=== PATIENT | female | born 1960 | race Caucasian/White ===

== ENCOUNTER → 2016-10-26 | Outpatient (CLI) | payer MEDICARE, OTHER ==
[2015-11-15 05:32] VITALS: BP 126/63
[~2016-10-26] MED LIST: ALPR0.5T PO; ASPI325T4 PO; ASPI81TA2 PO; ATOR40TA PO; CHOL500050 PO; CLOP75TA PO; CRESTOR40 MG PO; CYCL10TA2 PO; DULO30CA2 PO; FOLI1TAB16 PO; ISOS60TA2 PO; LIDO700A4 TP; LOSA25TA4 PO; METH10TA2 PO; METO25TA9 PO; MULT1TAB52 PO; NIAC1000 PO; NITR0.4T SL; OMEG1CAP6 PO; PARO40TA45 PO; PROAIR HFA8.5 GM INH; ZOLP10TA4 PO
--- NOTE | 2016-10-26 15:11 | RAD ---
Chest, 2 views, 10/26/2016: History: Shortness of breath Comparison is made to a study from 11/15/2015. There as been a previous median sternotomy. The heart size and pulmonary vascularity are normal. There is a unchanged dense nodule in the left lung compatible with a joint granuloma. No acute infiltrates are seen. There is no evidence of pleural fluid. IMPRESSION: No acute cardiopulmonary abnormality is detected.
== END | disposition home or self-care (01) ==
LOC: RAD 12:58
PROVIDERS: ATTEND Internal Medicine Pulmonary Disease
DX: R06.02 Shortness of breath (principal); R91.1 Solitary pulmonary nodule
CPT/HCPCS: 71020

== ENCOUNTER → 2016-11-05 | Outpatient (CLI) | payer MEDICARE, OTHER ==
[2015-11-15 05:32] VITALS: BP 126/63
--- NOTE | 2016-11-05 16:42 | RAD ---
CT scan of the chest without contrast 11/05/2016 Clinical history: Smoking history. Technique: Unenhanced, contiguous, 5 mm axial sections were obtained through the chest and upper abdomen. One or more of the following individualized dose reduction techniques were utilized for this study: 1. Automated exposure control. 2. Adjustment of the mA and/or kV according to patient size. 3. Use of iterative reconstruction technique. Findings: Comparison study is dated 12/10/2011. Surgical changes are seen consistent with a CABG procedure. Scattered atherosclerotic plaque formation is seen involving the thoracic aorta and its branches. The thoracic aorta tapers normally. The heart is normal in size. Extensive coronary artery calcifications are noted. Calcified left hilar and mediastinal lymph nodes are seen. A 1.9 cm noncalcified mediastinal lymph node is seen anterior to the lakhwinder, unchanged. A 3.9 cm calcified mass is seen within the left lower lobe which has not significantly changed. This could represent a hamartoma or granuloma. No pulmonary infiltrate is seen. No pleural effusion or pneumothorax is noted. No noncalcified pulmonary nodule or mass is seen. Images through the upper abdomen demonstrate small calcified gallstones within the gallbladder Atherosclerotic calcification of the abdominal aorta is seen. Degenerative changes are seen involving the thoracic spine. Impression: No acute abnormality is seen.
== END | disposition home or self-care (01) ==
LOC: CT 15:30
PROVIDERS: ATTEND Internal Medicine Pulmonary Disease
DX: Z12.9 Encounter for screening for malignant neoplasm, site unspecified (principal); F17.200 Nicotine dependence, unspecified, uncomplicated; M47.894 Other spondylosis, thoracic region
CPT/HCPCS: 71250

== ENCOUNTER → 2017-02-12 | Outpatient (CLI) | payer MEDICARE ==
[2015-11-15 05:32] VITALS: BP 126/63
[~2017-02-12] MED LIST changes: +ASPI-630 PO; -ASPI325T4 PO; +ASPI325T8 PO; -ASPI81TA2 PO; -PARO40TA45 PO; +PARO40TA61 PO
--- NOTE | 2017-02-12 15:55 | KCIC ---
LUMBAR SPINE MIN 4V History: Chronic low back pain increasing after fall 5-6 months ago Comparison: None. Findings: 5 views of the lumbar spine are submitted. Lumbar vertebral body stature is maintained. There is diffuse atherosclerotic calcification of the abdominal aorta. There is moderate degenerative disc disease at L5-S1. There is negligible posterior subluxation L2 relative to L3. There is multilevel facet degenerative change greater inferiorly of the lumbar spine. Impression: 1. There is multilevel facet degenerative change greater inferiorly of the lumbar spine. There is moderate degenerative disc disease L5-S1. Electronically signed by: Matthew Yost MD (02/12/2017 3:51 PM)
== END | disposition home or self-care (01) ==
LOC: KCIC 12:57
PROVIDERS: ATTEND Family Medicine
DX: M51.36 Other intervertebral disc degeneration, lumbar region (principal); M51.37 Other intervertebral disc degeneration, lumbosacral region
CPT/HCPCS: 72110

== ENCOUNTER → 2017-05-23 | Outpatient (CLI) | payer MEDICARE ==
[2015-11-15 05:32] VITALS: BP 126/63
[~2017-05-23] MED LIST changes: +METO-239 PO; -METO25TA9 PO
--- NOTE | 2017-05-23 12:20 | KCIC ---
Examination: CT right hip without contrast HISTORY: History of fall, right hip pain COMPARISON: None available TECHNIQUE: Axial CT images of the right hip were performed without contrast. Coronal and sagittal reformats are performed. Exposure: One or more of the following individualized dose reduction techniques were utilized for this examination: 1. Automated exposure control 2. Adjustment of the mA and/or kV according to patient size 3. Use of iterative reconstruction technique. Findings: The right femoral head is within the acetabulum. In the region of the superior acetabulum anteriorly, there are small comminuted bone fragments identified could be a age indeterminate fracture fragments or fractured anterior osteophytes in the superior acetabulum. The muscle bulk grossly appears unremarkable. No evidence of fracture of the right femoral head femoral neck region. Small osteophyte formation identified in the femoral head region. There is mild joint space loss identified in the right hip joint. IMPRESSION: 1. Small comminuted bone fragments identified in the superior acetabulum anteriorly could be age indeterminate fracture fragments or fractured anterior osteophytes. Correlate clinically with point tenderness. If there is history of recent injury , MRI may be useful. Electronically signed by: Lemuel Lamas MD (05/23/2017 12:16 PM) [id number]
== END | disposition home or self-care (01) ==
LOC: KCIC CT 10:54
PROVIDERS: ATTEND Family Medicine
DX: M25.551 Pain in right hip (principal); Z91.81 History of falling
CPT/HCPCS: 73700

== ENCOUNTER → 2017-12-30 | Outpatient (CLI) | payer MEDICARE | END | disposition home or self-care (01) | LOC: KCIC CT 10:27 | DX: R91.1 Solitary pulmonary nodule (principal); D71 Functional disorders of polymorphonuclear neutrophils; J84.10 Pulmonary fibrosis, unspecified; I31.3 Pericardial effusion (noninflammatory); K76.0 Fatty (change of) liver, not elsewhere classified; I10 Essential (primary) hypertension; Z87.891 Personal history of nicotine dependence | CPT/HCPCS: 71250 ==

== ENCOUNTER → 2018-05-13 | Outpatient (CLI) | payer MEDICARE ==
[2015-11-15 05:32] VITALS: BP 126/63
[~2018-05-13] MED LIST changes: -LOSA25TA4 PO; +LOSA25TA5 PO
--- NOTE | 2018-05-13 17:07 | RAD ---
Examination: 3 views of the right ankle HISTORY: History of right ankle pain COMPARISON: None available. FINDINGS: The alignment of the ankle mortise grossly appears unremarkable.There is no acute fracture or dislocation identified. Mild soft tissue swelling identified about the ankle joint. IMPRESSION: 1. No acute osseous findings. 2. Mild soft tissue swelling identified about the ankle joint. Electronically signed by: Lemuel Lamas MD (05/13/2018 5:04 PM) [id number]
== END | disposition home or self-care (01) ==
LOC: RAD 14:21
PROVIDERS: ATTEND Family Medicine
DX: M25.471 Effusion, right ankle (principal); J44.9 Chronic obstructive pulmonary disease, unspecified; I25.10 Atherosclerotic heart disease of native coronary artery without angina pectoris; K21.9 Gastro-esophageal reflux disease without esophagitis; I25.2 Old myocardial infarction; Z90.710 Acquired absence of both cervix and uterus; Z85.828 Personal history of other malignant neoplasm of skin; Z87.891 Personal history of nicotine dependence; Z88.8 Allergy status to other drugs, medicaments and biological substances; Z82.49 Family history of ischemic heart disease and other diseases of the circulatory system
CPT/HCPCS: 73610

== ENCOUNTER 2018-08-26 21:04 | Emergency (ER) | payer MEDICARE ==
[~2018-08-26] VITALS: Ht 157.5 cm; Wt 72.6 kg
[~2018-08-26 21:04] MED LIST changes: +ALBU2.5V8 INH; -LOSA25TA5 PO; +LOSA25TA54 PO; -PROAIR HFA8.5 GM INH
--- NOTE | 2018-08-26 23:42 | PHYS DOC ---
Past Medical History Past Medical History: Anxiety, Arthritis, CAD, COPD, Depression, Fibromyalgia, GERD, Hypertension, PA, Other Additional Past Medical Histor: ULCERS, BACK PAIN, SKIN CANCER Past Surgical History: Coronary Bypass Surgery, , Hysterectomy, Other Additional Past Surgical Histo: STENTS, CARPAL TUNNEL, Alcohol Use: None Drug Use: None Adult General Chief Complaint Chief Complaint: MECHANICAL FALL HPI HPI Patient is a 58 year old female who presents with left chest discomfort after being knocked down by a dog 3 days ago. Increased pain with deep breaths. Unable to lay flat due to the discomfort which also makes shortness of breath worse. No relief with her home methadone which she is on for her chronic pain and fibromyalgia issues. No syncope, no loss of consciousness. No head injury. No bruising. Some nausea, no vomiting, no radiation of the discomfort. [] Review of Systems Review of Systems Constitutional: Denies fever or chills [] Eyes: Denies change in visual acuity, redness, or eye pain [] HENT: Denies nasal congestion or sore throat [] Respiratory: Denies cough or shortness of breath [] Cardiovascular: No additional information not addressed in HPI [] GI: Denies abdominal pain, nausea, vomiting, bloody stools or diarrhea [] : Denies dysuria or hematuria [] Musculoskeletal: Denies back pain or joint pain [] Integument: Denies rash or skin lesions [] Neurologic: Denies headache, focal weakness or sensory changes [] Endocrine: Denies polyuria or polydipsia [] All other systems were reviewed and found to be within normal limits, except as documented in this note. Current Medications Current Medications Current Medications Medications (Trade) Dose Ordered Sig/Dominick Start Time Stop Time Status Last Admin Dose Admin Albuterol/ Ipratropium (Duoneb) 3 ml 1X ONCE 08/27/18 00:00 08/27/18 00:01 DC 08/27/18 00:15 3 ML Info (CONTRAST GIVEN -- Rx MONITORING) 1 each PRN DAILY PRN 08/27/18 01:45 08/29/18 01:44 Iohexol (Omnipaque 300 Mg/ml) 75 ml 1X ONCE 08/27/18 02:00 08/27/18 02:01 DC 08/27/18 02:21 75 ML Ketorolac Tromethamine (Toradol 30mg Vial) 30 mg 1X ONCE 08/27/18 00:00 08/27/18 00:01 DC 08/27/18 01:09 30 MG Allergies Allergies Allergies Coded Allergies Type Severity Reaction Last Updated Verified bupropion Allergy Intermediate 05/31/14 Yes doxycycline Allergy Intermediate 05/31/14 Yes Uncoded Allergies Type Severity Reaction Last Updated Verified liprocystine Allergy Intermediate 05/31/14 Physical Exam Physical Exam Constitutional: Well developed, well nourished, no acute distress, non-toxic appearance. [] HENT: Normocephalic, atraumatic, bilateral external ears normal, oropharynx moist, no oral exudates, nose normal. [] Eyes: PERRLA, EOMI, conjunctiva normal, no discharge. [] Neck: Normal range of motion, no tenderness, supple, no stridor. [] Cardiovascular:Heart rate regular rhythm, no murmur [] Lungs & Thorax: Bilateral breath sounds clear to auscultation, tenderness to palpation over the left chest at approximately the seventh and eighth rib anterior axillary line region. No crepitus is palpated no bruising is appreciated. [] Abdomen: Bowel sounds normal, soft, no tenderness, no masses, no pulsatile masses. [] Skin: Warm, dry, no erythema, no rash. [] Back: No tenderness, no CVA tenderness. [] Extremities: No tenderness, no cyanosis, no clubbing, ROM intact, no edema. [] Neurologic: Alert and oriented X 3, normal motor function, normal sensory function, no focal deficits noted. [] Psychologic: Affect normal, judgement normal, mood normal. [] Current Patient Data Vital Signs Vital Signs Date Time Temp Pulse Resp B/P (MAP) Pulse Ox O2 Delivery O2 Flow Rate FiO2 08/27/18 01:49 99 Room Air 08/26/18 22:09 97.9 79 18 145/65 (91) 97.9 Lab Values Laboratory Tests Test 08/27/18 00:54 08/27/18 01:00 Urine Collection Type Unknown Urine Color Yellow Urine Clarity Clear Urine pH 6.0 Urine Specific [place] <=1.005 Urine Protein Negative mg/dL (NEG-TRACE) Urine Glucose (UA) Negative mg/dL (NEG) Urine Ketones (Stick) Negative mg/dL (NEG) Urine Blood Small (NEG) Urine Nitrite Negative (NEG) Urine Bilirubin Negative (NEG) Urine Urobilinogen Dipstick 1.0 mg/dL (0.2 mg/dL) Urine Leukocyte Esterase Trace (NEG) Urine RBC Occ /HPF (0-2) Urine WBC 1-4 /HPF (0-4) Urine Squamous Epithelial Cells Occ /LPF Urine Bacteria 0 /HPF (0-FEW) Urine Mucus Slight /LPF White Blood Count 6.3 x10^3/uL (4.0-11.0) Red Blood Count 4.45 x10^6/uL (3.50-5.40) Hemoglobin 13.3 g/dL (12.0-15.5) Hematocrit 38.2 % (36.0-47.0) Mean Corpuscular Volume 86 fL (79-100) Mean Corpuscular Hemoglobin 30 pg (25-35) Mean Corpuscular Hemoglobin Concent 35 g/dL (31-37) Red Cell Distribution Width 14.8 % (11.5-14.5) H Platelet Count 157 x10^3/uL (140-400) Neutrophils (%) (Auto) 73 % (31-73) Lymphocytes (%) (Auto) 19 % (24-48) L Monocytes (%) (Auto) 7 % (0-9) Eosinophils (%) (Auto) 1 % (0-3) Basophils (%) (Auto) 0 % (0-3) Neutrophils # (Auto) 4.6 x10^3uL (1.8-7.7) Lymphocytes # (Auto) 1.2 x10^3/uL (1.0-4.8) Monocytes # (Auto) 0.5 x10^3/uL (0.0-1.1) Eosinophils # (Auto) 0.1 x10^3/uL (0.0-0.7) Basophils # (Auto) 0.0 x10^3/uL (0.0-0.2) Prothrombin Time 13.7 SEC (11.7-14.0) Prothrombin Time INR 1.1 (0.8-1.1) PTT 30 SEC (24-38) Sodium Level 140 mmol/L (136-145) Potassium Level 3.3 mmol/L (3.5-5.1) L Chloride Level 99 mmol/L (98-107) Carbon Dioxide Level 33 mmol/L (21-32) H Anion Gap 8 (6-14) Blood Urea Nitrogen 8 mg/dL (7-20) Creatinine 1.0 mg/dL (0.6-1.0) Estimated GFR (Cockcroft-Gault) 57.1 Glucose Level 144 mg/dL (70-99) H Calcium Level 9.8 mg/dL (8.5-10.1) Lipase 98 U/L (73-393) Laboratory Tests 08/27/18 01:00 Laboratory Tests 08/27/18 01:00 EKG EKG EKG shows a sinus rhythm, rate of 75 bpm, normal axis, no ST elevations, normal QTC, no acute changes when compared with EKG of 11/15/2015[] Radiology/Procedures Radiology/Procedures CT scan of the chest abdomen and pelvis Findings: CT chest findings: A large calcified granuloma is again seen on the left. There is mild atelectasis in the left lower lobe and a trace of adjacent pleural fluid. The lungs otherwise appear clear. There is no evidence of lung contusion or pneumothorax. The central airways show no obstruction. No enlarged lymph nodes are seen. A borderline enlarged right paratracheal node is unchanged. There is suggestion of some edema along the lower left lateral chest wall, although no clear-cut rib fracture is seen. CT abdomen and pelvis findings: The liver and spleen are homogeneous in density and normal in configuration. No adjacent fluid is seen. Both kidneys enhance with contrast and show no evidence of parenchymal injury. The adrenal glands and pancreas appear normal. No free fluid is seen in the abdomen. Images through the pelvis show no abnormality of the distal ureters or bladder. There is no free pelvic fluid. Bone windows show no apparent fracture. IMPRESSION: Small left-sided pleural effusion and adjacent atelectasis. Mild edema of the left lateral chest wall without apparent adjacent rib fracture. No acute findings in the abdomen or pelvis.[] Course & Med Decision Making Course & Med Decision Making Pertinent Labs and Imaging studies reviewed. (See chart for details) ED course: Patient arrived, was placed in bed, tolerated exam well. Patient did get some relief with the medicines administered. After the return of lab and imaging findings these were discussed with the patient who voiced understanding. All questions were answered. Gregory decision making: There is no evidence of hemo-or pneumothorax, no evidence of intractable pain. No evidence of acute coronary syndrome.[] Dragon Disclaimer Dragon Disclaimer This electronic medical record was generated, in whole or in part, using a voice recognition dictation system. Departure Departure Impression: Primary Impression: Chest wall pain Disposition: 01 HOME, SELF-CARE Condition: GOOD Referrals: VINAYAK CHAU MD (PCP) Follow-up in 2 days Patient Instructions: Chest Contusion Additional Instructions: Follow-up with your regular doctor in 2 days. Apply warm compresses to the area for 15 minutes at a time at least 4 times a day. Return to the ER if worsening difficulty breathing or any other concerns. Scripts Meloxicam (MELOXICAM) 7.5 Mg Tablet 7.5 MG PO DAILY, #20 TAB Prov: JUNE ESCALERA DO 08/27/18 JUNE ESCALERA DO Aug 26, 2018 23:42
[2018-08-27] MEDS ORDERED: KETOROLAC 30 MG/ML VIAL. IV ONE
[2018-08-27] MEDS ORDERED: IPRATRPIUM/ALBUTEROL 0.5/2.5MG 3 ML NEBU. NEB ONE
[2018-08-27 01:14] LABS: BASO % 0 % (0-3); EOS # 0.1 x10^3/uL (0.0-0.7); EOS % 1 % (0-3); HEMATOCRIT 38.2 % (36.0-47.0); HEMOGLOBIN 13.3 g/dL (12.0-15.5); LYMPH # 1.2 x10^3/uL (1.0-4.8); LYMPH % 19 % (24-48); MEAN CORPUSCULAR HEMOGLOBIN 30 pg (25-35); MEAN CORPUSCULAR HGB CONC 35 g/dL (31-37); MEAN CORPUSCULAR VOLUME 86 fL (79-100); MONO # 0.5 x10^3/uL (0.0-1.1); MONO % 7 % (0-9); NEUT # 4.6 x10^3uL (1.8-7.7); NEUT % 73 % (31-73); PLATELET COUNT 157 x10^3/uL (140-400); RED BLOOD COUNT 4.45 x10^6/uL (3.50-5.40); RED CELL DISTRIBUTION WIDTH 14.8 % (11.5-14.5); WHITE BLOOD COUNT 6.3 x10^3/uL (4.0-11.0)
[2018-08-27 01:16] LABS: BILIRUBIN,URINE NEGATIVE (NEG); CLARITY,URINE CLEAR; COLOR,URINE YELLOW; NITRITE,URINE NEGATIVE (NEG); PROTEIN,URINE NEGATIVE (NEG-TRACE)
[2018-08-27 01:30] LABS: CALCIUM 9.8 mg/dL (8.5-10.1); GFR 57.1; POTASSIUM 3.3 mmol/L (3.5-5.1)
[2018-08-27 01:32] LABS: PROTHROMBIN TIME PATIENT 13.7 SEC (11.7-14.0)
[2018-08-27 01:36] LABS: BACTERIA,URINE 0 /HPF (0-FEW); RBC,URINE OCC /HPF (0-2); SQUAMOUS EPITHELIAL CELL,UR OCC /LPF
[2018-08-27] MEDS ORDERED: CONTRAST GIVEN. MC PRN (01:45)
--- NOTE | 2018-08-27 01:52 | NUR ---
recieved verbal approval to give a 2nd breathing tx after being paged to come to the ER and give one. ag
[2018-08-27 02:00] VITALS: BP 117/56
[2018-08-27] MEDS ORDERED: IOHEXOL 300 MG/ML 100ML VIAL. IV ONE (02:00)
--- NOTE | 2018-08-27 02:44 | RAD ---
CT CHEST ABD PELVIS W/CONTRAST dated 08/27/2018 2:05 AM Indication:fell 3 days ago, lt rib pain, [id number] 60ml, priors sent Comparison: CT chest of 12/30/[address] abdomen and pelvis of 12/10/2005. Technique: One or more of the following individualized dose reduction techniques were utilized for this examination: 1. Automated exposure control 2. Adjustment of the mA and/or kV according to patient size 3. Use of iterative reconstruction technique Findings: CT chest findings: A large calcified granuloma is again seen on the left. There is mild atelectasis in the left lower lobe and a trace of adjacent pleural fluid. The lungs otherwise appear clear. There is no evidence of lung contusion or pneumothorax. The central airways show no obstruction. No enlarged lymph nodes are seen. A borderline enlarged right paratracheal node is unchanged. There is suggestion of some edema along the lower left lateral chest wall, although no clear-cut rib fracture is seen. CT abdomen and pelvis findings: The liver and spleen are homogeneous in density and normal in configuration. No adjacent fluid is seen. Both kidneys enhance with contrast and show no evidence of parenchymal injury. The adrenal glands and pancreas appear normal. No free fluid is seen in the abdomen. Images through the pelvis show no abnormality of the distal ureters or bladder. There is no free pelvic fluid. Bone windows show no apparent fracture. IMPRESSION: Small left-sided pleural effusion and adjacent atelectasis. Mild edema of the left lateral chest wall without apparent adjacent rib fracture. No acute findings in the abdomen or pelvis. Electronically signed by: Aron Banuelos Jr., MD (08/27/2018 2:40 AM) [facility]
[2018-08-27] MEDS ORDERED: MELO7.5T29 PO (03:12)
--- NOTE | 2018-08-27 06:42 | EKG ---
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 Electronically Signed On 09-03-2018 10:56:02 [employer] by Aron Mclain
== END 2018-08-27 03:24 | disposition home or self-care (01) ==
LOC: ER 21:04
DX: R07.1 Chest pain on breathing (principal); G89.11 Acute pain due to trauma; J98.11 Atelectasis; J90 Pleural effusion, not elsewhere classified; R06.02 Shortness of breath; G89.29 Other chronic pain; J44.9 Chronic obstructive pulmonary disease, unspecified; F32.9 Major depressive disorder, single episode, unspecified; I25.10 Atherosclerotic heart disease of native coronary artery without angina pectoris; I10 Essential (primary) hypertension; F41.9 Anxiety disorder, unspecified; K21.9 Gastro-esophageal reflux disease without esophagitis; Z95.1 Presence of aortocoronary bypass graft; Z90.710 Acquired absence of both cervix and uterus; Z95.5 Presence of coronary angioplasty implant and graft; I25.2 Old myocardial infarction; W18.39XA Other fall on same level, initial encounter; Y93.89 Activity, other specified; Y92.89 Other specified places as the place of occurrence of the external cause; Y99.8 Other external cause status
CPT/HCPCS: 36415; 71260; 74177; 80048; 81001; 83690; 85025; 85610; 85730; 93005; 94640; 96374; 99284; J1885; J7620; Q9967

== ENCOUNTER → 2019-05-18 | Outpatient (CLI) | payer MEDICARE ==
[~2019-05-18] MED LIST changes: +MELO7.5T29 PO; -NITR0.4T SL; +NITR0.4T24 SL
--- NOTE | 2019-05-18 16:15 | KCIC ---
CHEST PA LATERAL History: Weight loss, productive cough for 3 weeks, smoker Comparison: Chest CT August 27, 2018 Findings: 2 views of the chest are submitted. There is again partially calcified mass of the mid to severe left hemithorax. There again has been a median sternotomy. Cardiac silhouette is within normal limits. There is no dependent pleural fluid, lobar infiltrate, pneumothorax. Impression: 1. No acute radiographic abnormality is identified. There is again large partially at least partially lesion of the mid to superior left hemithorax. Electronically signed by: Matthew Yost MD (05/18/2019 4:12 PM) [id number]
== END | disposition home or self-care (01) ==
LOC: KCIC 14:18
PROVIDERS: ATTEND Family Medicine
DX: R91.8 Other nonspecific abnormal finding of lung field (principal); R63.4 Abnormal weight loss; F17.200 Nicotine dependence, unspecified, uncomplicated
CPT/HCPCS: 71046

== ENCOUNTER → 2019-07-16 | Outpatient (CLI) | payer MEDICARE ==
--- NOTE | 2019-07-17 09:56 | KCIC ---
Examination: CERVICAL SPINE 5V History: Fell 6 weeks ago, neck pain, struck the left side of the face Comparison/Correlation: None Findings: Total of 5 images of the cervical spine were obtained. Alignment of cervical spine is normal. Atlantoaxial joint degenerative changes are present. Vertebral body heights are adequate. Disc spaces are adequate. Facet joint degenerative hypertrophy bilaterally is seen. Bony encroachment on the left neural foramina at C4-5 and C5-6 is questioned. Evaluation is limited due to positioning however. No bony destructive finding. Incidental note is made of sternal wires and mediastinal clips which are partially seen. Impression: Facet joint degenerative changes. Possibility of bony encroachment on the left C4-5 and C5-6 neural foramina. Electronically signed by: Robert Felton MD (07/17/2019 9:53 AM) [facility]
--- NOTE | 2019-07-17 09:58 | KCIC ---
Examination: ORBITS COMPLETE 4+V History: Fell 6 weeks ago, struck the left side of face, pain Comparison/Correlation: None Findings: Total of 4 images of the orbits were obtained. This includes a left oblique view. No fluid levels identified involving the paranasal sinuses. Orbits are intact with no fracture identified. Soft tissues are unremarkable. Left zygomatic is grossly unremarkable. Impression: No suspicious process. Consider further imaging if fracture is a persistent concern. Electronically signed by: Robert Felton MD (07/17/2019 9:54 AM) [facility] [place]
== END | disposition home or self-care (01) ==
LOC: KCIC 12:32
PROVIDERS: ATTEND Family Medicine
DX: M47.812 Spondylosis without myelopathy or radiculopathy, cervical region (principal); M89.38 Hypertrophy of bone, other site; W19.XXXA Unspecified fall, initial encounter; Y93.89 Activity, other specified; Y92.89 Other specified places as the place of occurrence of the external cause; Y99.8 Other external cause status
CPT/HCPCS: 70200; 72050

== ENCOUNTER → 2020-01-15 | Outpatient (CLI) | payer MEDICARE ==
[2020-01-15 10:31] LABS: BASO % 1 % (0-3); EOS # 0.1 x10^3/uL (0.0-0.7); EOS % 2 % (0-3); HEMATOCRIT 42.3 % (36.0-47.0); HEMOGLOBIN 13.8 g/dL (12.0-15.5); LYMPH # 1.2 x10^3/uL (1.0-4.8); LYMPH % 22 % (24-48); MEAN CORPUSCULAR HEMOGLOBIN 28 pg (25-35); MEAN CORPUSCULAR HGB CONC 33 g/dL (31-37); MEAN CORPUSCULAR VOLUME 85 fL (79-100); MONO # 0.3 x10^3/uL (0.0-1.1); MONO % 6 % (0-9); NEUT # 3.8 x10^3/uL (1.8-7.7); NEUT % 70 % (31-73); PLATELET COUNT 169 x10^3/uL (140-400); RED BLOOD COUNT 4.97 x10^6/uL (3.50-5.40); RED CELL DISTRIBUTION WIDTH 15.3 % (11.5-14.5); WHITE BLOOD COUNT 5.4 x10^3/uL (4.0-11.0)
[2020-01-15 10:47] LABS: ALBUMIN 3.8 g/dL (3.4-5.0); CALCIUM 9.1 mg/dL (8.5-10.1); CREATININE 1.1 mg/dL (0.6-1.0); POTASSIUM 4.4 mmol/L (3.5-5.1); TOTAL BILIRUBIN 0.5 mg/dL (0.2-1.0); TOTAL PROTEIN 7.7 g/dL (6.4-8.2)
[2020-01-15 10:49] LABS: CHOLESTEROL/HDL RATIO 5.6
== END ==
LOC: LAB 10:12
PROVIDERS: ATTEND Internal Medicine Cardiovascular Disease
DX: I25.10 Atherosclerotic heart disease of native coronary artery without angina pectoris (principal)
CPT/HCPCS: 36415; 80053; 80061; 83721; 85025

== ENCOUNTER → 2020-05-03 | Outpatient (CLI) | payer MEDICARE ==
[~2020-05-03] MED LIST changes: +MULT-445 PO; -MULT1TAB52 PO
--- NOTE | 2020-05-03 15:06 | RAD ---
CT LOW DOSE LUNG SCREENING INDICATION: SCREENING FOR MALIGNANCY NEOPLASM OF LUNG. History of smoking. COMPARISON STUDY: 12/30/2017. TECHNIQUE: Unenhanced axial images were obtained through the lungs and upper abdomen using low dose technique. Coronal and sagittal multiplanar reformatted images were also obtained. PQRS compliance statement: One or more of the following individualized dose reduction techniques were utilized for this examination: 1. Automated exposure control 2. Adjustment of the mA and/or kV according to patient size 3. Use of iterative reconstruction technique FINDINGS: Lung Nodules: There are a couple of tiny pulmonary nodules with personal banking representative nodule as follows: Left upper lobe 2 mm nodule (series 2 image 44). Lungs and Airways: Previously seen large left lateral hemithorax calcified nodule has been resected, with small amount of residual calcification and branching linear opacities which may probably represent postsurgical scar/fibrosis. Normal central airways. Pleura: Normal pleural spaces. Heart and Mediastinum: The visualized portions of the thyroid gland are normal in size and attenuation. No axillary or supraclavicular lymphadenopathy. No mediastinal, hilar or retrocrural lymphadenopathy. Calcified mediastinal and left hilar lymph nodes consistent with remote granulomatous disease. Normal cardiac size. No pericardial effusion. Coronary artery atherosclerotic disease. Atherosclerosis of the thoracic aorta and branch vessels. Abdomen: Calcified splenic granulomas. Bones and Soft Tissues: Degenerative changes spine. Median sternotomy. IMPRESSION: 1. There are a couple of tiny pulmonary nodules. Lung-RADS Category: 2 Management Recommendation: Follow up low-dose chest CT in one year. 2. Small amount of calcification and some linear opacities along the left lateral hemithorax at the site of a previously resected large calcified nodule, probably postsurgical change. Attention on follow-up imaging. Electronically signed by: Matthew Garsia MD (05/03/2020 3:03 PM) [facility]
== END | disposition home or self-care (01) ==
LOC: CT 11:26
PROVIDERS: ATTEND Family Medicine
DX: Z12.2 Encounter for screening for malignant neoplasm of respiratory organs (principal); R91.8 Other nonspecific abnormal finding of lung field; I70.0 Atherosclerosis of aorta; I25.10 Atherosclerotic heart disease of native coronary artery without angina pectoris; D73.89 Other diseases of spleen; Z87.891 Personal history of nicotine dependence
CPT/HCPCS: G0297

== ENCOUNTER → 2020-07-26 | Outpatient (CLI) | payer MEDICARE ==
--- NOTE | 2020-07-26 16:48 | KCIC ---
EXAMINATION: Magnetic resonance imaging (MRI) of the brain and brainstem without contrast 07/26/2020 3:30 PM HISTORY: Right arm and leg weakness from 06/21/2020 TECHNIQUE: Multiplanar multi-weighted MRI of the brain and brainstem was performed without intravenous contrast using the general brain protocol. COMPARISON: None available. FINDINGS: The scalp and calvarium are normal. The superior sagittal sinus demonstrates normal venous flow. The corpus callosum is normal in shape and signal intensity. Remote lacunar infarcts identified in the right cerebellum.. The pituitary and sella are normal. The brainstem and craniocervical junction are unremarkable. There are T2/FLAIR signal hyperintense foci in the carlos, periventricular and subcortical white matter with areas of confluence most suggestive of moderate chronic small vessel ischemic changes. Focal diffusion signal hyperintensity is identified in the left lateral thalamus, posterior limb left internal capsule with pseudonormalization as well as T2 shine through on ADC map. Findings favor a subacute to chronic infarct. The susceptibility weighted sequences reveal no evidence of acute or chronic hemorrhage. Ventricles, sulci and basal cisterns are prominent compatible with moderate generalized cerebral volume loss The paranasal sinuses are normal. Small amount of fluid noted in the left mastoid air cells. The orbits appear normal. Normal flow voids are demonstrated in the carotid arteries and basilar artery. IMPRESSION: 1. There is a subacute to chronic lacunar infarct involving the left lateral thalamus/posterior limb left internal capsule. Mild cytotoxic edema. No hemorrhage. 2. There are T2/FLAIR signal hyperintense foci in the carlos, periventricular and subcortical white matter with areas of confluence most suggestive of moderate chronic small vessel ischemic changes. Mild transependymal flow of CSF could be chronic in the absence of acute symptoms. 3. Moderate generalized cerebral volume loss. Electronically signed by: Ila Gaxiola MD (07/26/2020 4:45 PM) [facility]
== END ==
LOC: KCIC MRI 15:47
PROVIDERS: ATTEND Family Medicine
DX: I63.81 Other cerebral infarction due to occlusion or stenosis of small artery (principal)
CPT/HCPCS: 70551

== ENCOUNTER → 2020-08-29 | Outpatient (CLI) | payer MEDICARE ==
--- NOTE | 2020-08-29 16:49 | KCIC ---
EXAM: CT Chest without IV contrast INDICATION: Reason: Lung nodules, smoker, Lt lung nodule resection. / Spl. Instructions: / History: TECHNIQUE: Multi-detector row CT images were acquired from the thoracic inlet through the upper abdo men without the use of IV contrast. Sagittal and coronal images were acquired from the transaxial ivone a. All CT scans performed at this facility utilize dose optimization techniques as appropriate to the exam, including the following: Automated exposure control and adjustment of the mA and/or KV accordi ng to patient size (this includes techniques or standardized protocols for targeted exams where dose is indication/reason for exam). COMPARISON: Noncontrast low-dose lung cancer screening chest CT of 05/03/2020, chest CT with IV contras t of 08/27/2018. FINDINGS: The absence of IV contrast limits evaluation of soft tissue pathology. CARDIOVASCULAR: Post CABG surgical changes are present in the setting of extensive atherosclerotic v ascular disease. Normal caliber thoracic aorta. MEDIASTINUM & HECTOR: Extensive calcified and noncalcified mediastinal lymph nodes, largest noncalcifie d nodes measuring 1.2 cm in short axis in the precarinal brian station. There are dense left hilar ca lcified lymph nodes. LUNGS: Previously noted small pulmonary nodules are less apparent on this examination and may have si nce resolved. There is interval decrease in soft tissue component of a partly calcified stellate opac ity in the periphery of the posterior left upper lobe abutting the major fissure, likely representing postsurgical scar from previous calcified mass resection in the left upper lobe.. PLEURAL SPACE: No pleural effusions or pneumothorax. OSSEOUS & SOFT TISSUE: Unremarkable ABDOMEN: The visualized portions of the upper abdomen show possible cholelithiasis, scattered spleni c granulomas and aortic calcifications. IMPRESSION: Improving postop scar in the posterior left upper lobe with no developing lung nodules or opacities s uspicious for malignancy. Recommend continued annual low-dose CT lung cancer screening. Electronically signed by: Kristy Larson MD (08/29/2020 4:47 PM) [id number]
== END ==
LOC: KCIC CT 10:20
PROVIDERS: ATTEND Family Medicine
DX: R91.1 Solitary pulmonary nodule (principal); Z87.891 Personal history of nicotine dependence; Z95.5 Presence of coronary angioplasty implant and graft
CPT/HCPCS: 71250

== ENCOUNTER → 2021-01-17 | Outpatient (CLI) | payer MEDICARE ==
[~2021-01-17] MED LIST changes: -ISOS60TA2 PO; +ISOS60TA55 PO
--- NOTE | 2021-01-17 11:47 | RAD ---
EXAM: Bilateral digital screening mammogram with tomosynthesis. HISTORY: 60-year-old female presents for screening mammography. TECHNIQUE: Full-field digital craniocaudal and mediolateral oblique 2D and 3D tomosynthesis images of both breasts are obtained for evaluation. Computer aided detection was applied. COMPARISON: None. This exam serves as a baseline mammogram. BREAST PARENCHYMAL DENSITY: Level B - Scattered fibroglandular densities. FINDINGS: There is a cluster of microcalcifications within the posterior 2:00 position of the left br east. These appear to demonstrate coarse morphology, favoring benignity. There is no mass or architec tural distortion within either breast. IMPRESSION: BI-RADS Category 0: Incomplete. Additional imaging needed. RECOMMENDATION: Further evaluation with spot magnification views of clustered microcalcifications wit hin the posterior 2:00 position of the left breast is recommended to confirm benign morphology. If your mammogram demonstrates that you have dense breast tissue, which could hide abnormalities, and if you have other risk factors for breast cancer that have been identified, you might benefit from s upplemental screening tests that may be suggested by your ordering physician. Dense breast tissue, i n and of itself, is a relatively common condition. This information is not provided to cause undue c oncern, but rather to raise your awareness and to promote discussion with your physician regarding th e presence of other risk factors, in addition to dense breast tissue. A report of your mammography re sults will be sent to you and your physician. You should contact your physician if you have any ques tions or concerns regarding this report. Mammography is a sensitive method for finding small breast cancers, but it does not detect them all a nd is not a substitute for careful clinical examination. A negative mammogram does not negate a clin ically suspicious finding and should not result in delay in biopsying a clinically suspicious abnorma lity. PQRS compliance statement - Patient information was entered into a reminder system with a target due date for the next mammogram. "Our facility is accredited by the [employer] Mammography [employer]." Electronically signed by: Elizabeth Bass MD (01/17/2021 11:45 AM) [id number]
== END ==
LOC: MAMMO 09:43
PROVIDERS: ATTEND Family Medicine
DX: Z12.31 Encounter for screening mammogram for malignant neoplasm of breast (principal)
CPT/HCPCS: 77063; 77067

== ENCOUNTER → 2021-01-23 | Outpatient (CLI) | payer MEDICARE ==
--- NOTE | 2021-01-23 13:13 | RAD ---
EXAM: Left breast diagnostic mammogram. HISTORY: 60-year-old female presents for evaluation of microcalcifications within the left breast dem onstrated on a baseline mammogram performed 01/17/2021. TECHNIQUE: Full-field digital true lateral and spot magnification views of the left breast are obtain ed. COMPARISON: 01/17/2021 BREAST PARENCHYMAL DENSITY: Level B - Scattered fibroglandular densities. FINDINGS: There is a small cluster of coarse heterogeneous calcifications within the 3:00 position of the left breast at mid to posterior depth. No associated mass or architectural distortion is seen. IMPRESSION: BI-RADS Category 4: Suspicious abnormality. Stereotactic guided biopsy is recommended. RECOMMENDATION: Stereotactic guided biopsy of indeterminate clustered microcalcification within the 3 :00 position of the left breast is recommended for definitive diagnosis. These findings and recommendation were discussed with the patient and communicated to the referring p hysician office. If your mammogram demonstrates that you have dense breast tissue, which could hide abnormalities, and if you have other risk factors for breast cancer that have been identified, you might benefit from s upplemental screening tests that may be suggested by your ordering physician. Dense breast tissue, i n and of itself, is a relatively common condition. This information is not provided to cause undue c oncern, but rather to raise your awareness and to promote discussion with your physician regarding th e presence of other risk factors, in addition to dense breast tissue. A report of your mammography re sults will be sent to you and your physician. You should contact your physician if you have any ques tions or concerns regarding this report. Mammography is a sensitive method for finding small breast cancers, but it does not detect them all a nd is not a substitute for careful clinical examination. A negative mammogram does not negate a clin ically suspicious finding and should not result in delay in biopsying a clinically suspicious abnorma lity. PQRS compliance statement - Patient information was entered into a reminder system with a target due date for the next mammogram. "Our facility is accredited by the [employer] Mammography Program." Electronically signed by: Elizabeth Bass MD (01/23/2021 1:11 PM) [id number]
== END ==
LOC: MAMMO 12:21
PROVIDERS: ATTEND Family Medicine
DX: R92.1 Mammographic calcification found on diagnostic imaging of breast (principal)
CPT/HCPCS: 77065

== ENCOUNTER → 2021-03-13 | Outpatient (CLI) | payer MEDICARE ==
--- NOTE | 2021-03-13 15:00 | RAD ---
EXAM: Chest, 2 views. HISTORY: Shortness of breath. COMPARISON: 05/18/2019 FINDINGS: 2 views of the chest are obtained. There has been interval decrease in nodular opacity with in the lateral left upper lobe. There is no pleural effusion or pneumothorax. There is evidence of pr ior median sternotomy and coronary artery stenting. IMPRESSION: 1. Decreased nodular opacity within the lateral left upper lobe better characterized on the CT perfor med 08/29/2020. The interval decrease in size favors a postoperative scarring given history of prior partial lung resection. 2. No acute pulmonary finding. Electronically signed by: Elizabeth Bass MD (03/13/2021 2:58 PM) [id number]
== END ==
LOC: RAD 10:03
PROVIDERS: ATTEND Internal Medicine Pulmonary Disease
DX: R91.1 Solitary pulmonary nodule (principal); Z90.2 Acquired absence of lung [part of]
CPT/HCPCS: 71046

== ENCOUNTER → 2021-05-16 | Outpatient (CLI) | payer MEDICARE ==
[~2021-05-16] MED LIST changes: +LIDOCAINE 1% Multi-Dose 20 ML VIAL. INJ ONE; +LIDOCAINE 2%/EPI 1:100,000 20 ML VIAL. INJ ONE; +METH-572 PO; -METH10TA2 PO
--- NOTE | 2021-05-16 15:13 | RAD ---
EXAM: Stereotactic left breast biopsy; specimen radiograph; post-biopsy clip placement; left breast d iagnostic mammogram; left breast post-biopsy mammogram. HISTORY: 61-year-old female presents for stereotactic guided biopsy of microcalcification within the left breast demonstrated on a study performed 01/23/2021. TECHNIQUE AND FINDINGS: The procedure and its risks and benefits were discussed with the patient. Ris ks discussed included, but were not limited to, pain, infection, bleeding and need for repeat biopsy. The patient provided verbal and written consent. A timeout was performed. The patient was placed in a prone position of the stereotacic table and the left breast was placed in craniocaudal compression. Images were obtained and the ossifications of concern were localized using stereotaxis. The skin overlying this region was then sterilely prepped and infiltrated with a few cc 1% lidocaine for local anesthesia. Deeper soft tissue anesthesia was administered with epinephrine i n 1% lidocaine. A small skin incision was made and the biopsy device was advanced and appropriate pos itioning was confirmed with additional images. Subsequently, multiple core biopsy samples were obtained with vacuum assistance. A plain radiograph o f the specimen was obtained, demonstrating inclusion of the calcifications of interest. Then, a post- biospy clip was advanced to the site of biopsy using the same guidance technique. A sterile bandage was placed, and the patient was transferred to the mammography suite for craniocaudal and mediolatera l oblique views. The post-biopsy mammogram was interpreted a separate workstation and demonstrates immediate post-bios py changes and a biopsy clip in expected position. The patient tolerated the procedure without diffic ulty and was discharged to home in stable condition with post-biospy care instructions. IMPRESSION: Successful stereotactic biospy of clustered microcalcifications within the 2:00 position of the left breast and post-biopsy clip placement. An addendum to this report be submitted when patho logy results are available. Electronically signed by: Elizabeth Bass MD (05/16/2021 3:10 PM) [id number]
--- NOTE | 2021-05-17 16:06 | PATHOLOGY ---
[facility] Accession Number: [id number] . 01 Material submitted: . breast - LEFT BREAST BIOPSY CALCS IN GRID. Modifiers: left . 01 Clinical history: . CALCS LT BREAST STEREOTACTIC BIOPSY OBTAINED 2:19PM FORMALIN 2:35PM ABNORMAL MAMMO . 02 Diagnosis: Breast tissue, left breast stereotactic biopsies: - Ancient fibroadenoma, with associated calcifications, measuring 3 mm in greatest dimension. . (JPM:mm; 05/17/2021) [facility] 05/17/2021 1203 Local . 02 Comment: There is no atypia or evidence of malignancy. . (JPM:mml; 05/17/2021) . 02 Electronically signed: . Germain Sanchez MD, Pathologist NPI- [id number] . 01 Gross description: . The specimen is received in formalin, labeled "[place], [place], LT breast" and per the requisition "LT breast BX calcs in grid". It consists of multiple whelan-yellow, irregular fatty soft tissue segments received in a gridded cassette measuring 2.5 x 2.0 x 0.5 cm in aggregate. Additional soft tissue is not identified within the specimen container. The specimen is entirely submitted between sponges in A1-A6. Time removed from patient: 2:19 PM on 05/16/2021 Time placed in formalin: 2:35 PM on 05/16/2021 Time removed from formalin: 11:40PM on 05/16/2021 Total time in formalin: 9 hours 5 minutes (MRF; 05/16/2021) MFE/MFE 05/16/2021 1643 Local . 02 Pathologist provided ICD-10: D24.2 . 02 CPT . 292117 Specimen Comment: A courtesy copy of this report has been sent to [phone], [phone] Specimen Comment: [id number], Specimen Comment: Report sent to , DR ANDERSON / DR CARIRON Performed at: 01 [facility] [address], [place] [id number] MD Joseph Floyd MD Phone: [phone] Performed at: 02 [facility] [address] [place], [place] [id number] MD Germain Sanchez MD Phone: [phone]
== END | disposition home or self-care (01) ==
LOC: MAMMO 13:08
PROVIDERS: ATTEND Surgery
DX: R92.8 Other abnormal and inconclusive findings on diagnostic imaging of breast (principal); D24.2 Benign neoplasm of left breast; I25.10 Atherosclerotic heart disease of native coronary artery without angina pectoris; I10 Essential (primary) hypertension; E78.00 Pure hypercholesterolemia, unspecified; K21.9 Gastro-esophageal reflux disease without esophagitis; M19.90 Unspecified osteoarthritis, unspecified site; F41.9 Anxiety disorder, unspecified; F32.9 Major depressive disorder, single episode, unspecified; G47.30 Sleep apnea, unspecified; F17.210 Nicotine dependence, cigarettes, uncomplicated; Z85.828 Personal history of other malignant neoplasm of skin; Z79.899 Other long term (current) drug therapy; Z98.890 Other specified postprocedural states; Z88.1 Allergy status to other antibiotic agents; Z88.8 Allergy status to other drugs, medicaments and biological substances
CPT/HCPCS: 19081; 77065; 88305; J3490

== ENCOUNTER → 2021-10-12 | Outpatient (CLI) | payer MEDICARE ==
[~2021-10-12] MED LIST changes: +CYCL10TA19 PO; -CYCL10TA2 PO; -LIDOCAINE 1% Multi-Dose 20 ML VIAL. INJ ONE; -LIDOCAINE 2%/EPI 1:100,000 20 ML VIAL. INJ ONE
--- NOTE | 2021-10-12 13:51 | KCIC ---
EXAM: CT CHEST WITHOUT CONTRAST (LDCT LUNG CANCER SCREENING). HISTORY: Risk factors for pulmonary malignancy. Cigarette smoking. TECHNIQUE: CT of the chest was performed without intravenous contrast using a low-dose lung screening protocol. Findings analysis is based on ACR Lung-RADS v1.1. *One or more of the following individual ized dose reduction techniques were utilized for this examination: 1. Automated exposure control. 2. Adjustment of the mA and/or kV according to patient size. 3. Use of iterative reconstruction technique. COMPARISON: 08/29/2020. FINDINGS: The heart is normal in size. There is coronary artery calcification and evidence of prior C ABG. There are multiple calcified mediastinal and hilar granulomas. There is a stable precarinal lymp h node measuring 1.4 cm. There is no pneumothorax or pleural effusion. There is stable pleural parenchymal scarring with coarse calcifications within the lateral left upper lobe. There is additional performed on the initial opacity within the anterior left upper lobe which is increased compared to the prior study. There is linear scarring or atelectasis within the posteri or right upper lobe and lateral left lower lobe. Evaluation of the upper abdomen demonstrate no acute finding. There is aortic and aortic branch vesse l atherosclerosis. There are splenic granulomas. There are degenerative changes throughout the spine. There is a chronic mild wedge compression deformity of T5. IMPRESSION: 1. Stable pleural parenchymal scarring and coarse calcifications left upper lobe. There is increased peripheral prominent opacity within the anterior left upper lobe likely due to progressing pleural pa renchymal scarring. No suspicious nodule is seen. Lung RADS category 1: Continued annual CT lung canc er screening is recommended. 2. No acute thoracic finding. Electronically signed by: Elizabeth Bass MD (10/12/2021 1:48 PM) [id number]
== END ==
LOC: KCIC CT 13:19
PROVIDERS: ATTEND Internal Medicine Pulmonary Disease
DX: Z12.2 Encounter for screening for malignant neoplasm of respiratory organs (principal); R91.8 Other nonspecific abnormal finding of lung field; I25.10 Atherosclerotic heart disease of native coronary artery without angina pectoris; J84.10 Pulmonary fibrosis, unspecified; M47.819 Spondylosis without myelopathy or radiculopathy, site unspecified; M43.8X4 Other specified deforming dorsopathies, thoracic region; F17.210 Nicotine dependence, cigarettes, uncomplicated
CPT/HCPCS: 71271